=== PATIENT | male | born 1940 | race Caucasian/White ===

== ENCOUNTER → 2022-09-21 | Outpatient (CLI) | payer MEDICARE, OTHER ==
[2022-09-21 14:08] LABS: INR 0.9 (<1.2); Partial Thromboplastin Time 23.7 sec (22.0-30.0)
== END | disposition home or self-care (01) ==
LOC: LABPAT 13:10
PROVIDERS: ATTEND Orthopaedic Surgery Orthopaedic Surgery of the Spine
DX: Z01.812 Encounter for preprocedural laboratory examination (principal); M48.00 Spinal stenosis, site unspecified
CPT/HCPCS: 85610; 85730

== ENCOUNTER 2022-09-26 06:13 | Day surgery (SDC) | payer MEDICARE, OTHER ==
[2022-09-22 10:05] VITALS: BMI 29.7
[~2022-09-26 06:13] MED LIST: ceFAZolin 1,000 MG in SODIUM CHLORIDE 0.9% IRRIGATIO 1,000 ML IRRIGATION PRN
[2022-09-26] MEDS ORDERED: ONDANSETRON 4 MG/2 ML VIAL IVP ONE (06:43)
[2022-09-26] MEDS ORDERED: DEXAMETHASONE SOD PHOSPHATE 4 MG/ML 1 ML VIAL IV ONE (06:43)
[2022-09-26] MEDS ORDERED: LIDOCAINE 1% (10MG/ML) FOR IV START INTRADERMA PRN (06:43)
[2022-09-26] MEDS ORDERED: HYDROmorphone 0.5 MG/0.5 ML SYRINGE IVP PRN ×2 (07:00→09:39)
[2022-09-26] MEDS ORDERED: METOCLOPRAMIDE 5 MG/ML 2 ML VIAL IVP PRN (07:00)
[2022-09-26] MEDS ORDERED: FAMOTIDINE 20 MG/2 ML VIAL IV PRN (07:00)
[2022-09-26] MEDS: LACTATED RINGERS 1,000 ML IV SCH (07:15)
[2022-09-26] MEDS ORDERED: SUCCINYLCHOLINE CHLORIDE 200 MG/10 ML VIAL IV ONE (07:36)
[2022-09-26] MEDS ORDERED: DEXAMETHASONE SOD PHOS (MDV) 100 MG/10 ML VIAL ONE (07:36)
[2022-09-26] MEDS ORDERED: MIDAZOLAM 2 MG/2 ML VIAL ONE (07:36)
[2022-09-26] MEDS ORDERED: NEOSTIGMINE 1 MG/ML 10 ML VIAL ONE (07:36)
[2022-09-26] MEDS ORDERED: GLYCOPYRROLATE 0.2 MG/ML 2 ML VIAL ONE (07:36)
[2022-09-26] MEDS ORDERED: ePHEDrine 50 MG/ML 1 ML VIAL ONE (07:36)
[2022-09-26] MEDS ORDERED: ROCURONIUM 10 MG/ML (5 ML VIAL) IV ONE (07:36)
[2022-09-26] MEDS ORDERED: LIDOCAINE 2% INJ 20 MG/ML (2 ML VIAL) ONE (07:36)
[2022-09-26] MEDS ORDERED: PROPOFOL 10 MG/ML 20 ML VIAL IV ONE (07:36)
[2022-09-26] MEDS ORDERED: fentaNYL (PF) 50 MCG/ML 2 ML AMP ONE (07:36)
[2022-09-26] MEDS ORDERED: THROMBIN (BOVINE) 5,000 UNIT VIAL TOPICAL ONE (08:10)
[2022-09-26] MEDS ORDERED: GELATIN SPONGE,ABSORB (LARGE) 1 EACH SPONGE TOPICAL ONE (08:10)
[2022-09-26] MEDS ORDERED: LIDOCAINE 2% (PF) 20 MG/ML 10 ML AMP SQ ONE (08:10)
--- NOTE | 2022-09-26 09:30 | XR ---
EXAMINATION TYPE: XR cervical spine 1V DATE OF EXAM: 09/26/2022 COMPARISON: NONE HISTORY: Neck pain. TECHNIQUE: There are 2 crosstable lateral view of cervical spine obtained intraoperatively. FINDINGS: Second image shows needle localization at the C3-C4 disc space level. Exam is for surgical planning and not for diagnostic purposes. IMPRESSION: As above.
[2022-09-26] MEDS ORDERED: ONDANSETRON 4 MG/2 ML VIAL IVP PRN (09:39)
[2022-09-26] MEDS ORDERED: HYDROcodone/APAP 5-325MG 1 EACH TAB PO PRN (09:39)
[2022-09-26] MEDS ORDERED: CYCLOBENZAPRINE 10 MG TAB PO PRN (09:39)
[2022-09-26] MEDS ORDERED: MAGNESIUM HYDROXIDE 2,400 MG/10 ML CUP PO PRN (09:39)
[2022-09-26] MEDS ORDERED: ACETAMINOPHEN TAB 500 MG TAB PO PRN (09:39)
[2022-09-26] MEDS ORDERED: BENZOCAINE/MENTHOL LOZENG 1 EACH LOZENGE MUCOUS MEM PRN (09:39)
--- NOTE | 2022-09-26 09:43 | XR ---
EXAMINATION TYPE: XR cervical spine 1V DATE OF EXAM: 09/26/2022 COMPARISON: NONE HISTORY: Neck pain. TECHNIQUE: Crosstable lateral view of cervical spine is obtained intraoperatively. FINDINGS: There is new anterior fusion plate with artificial disc material at C3-C5 levels. Visualize d portion of spine shows satisfactory alignment. Overlying endotracheal tube is partially imaged. IMPRESSION: As above.
--- NOTE | 2022-09-26 09:46 | P.OP ---
Date of Procedure: 09/26/22 Preoperative Diagnosis: Cervical myelopathy, cervical myelomalacia, severe cervical stenosis C3 4 C4 5, herniated nucleus pulposis C3 4 C4 5, upper extremity myeloradiculopathy, upper extremity weakness, neck pain, degenerative disc disease Postoperative Diagnosis: Same Anesthesia: GETA Pathology: none sent Condition: stable Disposition: PACU Description of Procedure: BRIEF OPERATIVE NOTE Preoperative Diagnosis:Cervical myelopathy, cervical myelomalacia, severe cervical stenosis C3 4 C4 5, herniated nucleus pulposis C3 4 C4 5, upper extremity myeloradiculopathy, upper extremity weakness, neck pain, degenerative disc disease Postoperative Diagnosis:Cervical myelopathy, cervical myelomalacia, severe cervical stenosis C3 4 C4 5, herniated nucleus pulposis C3 4 C4 5, upper extremity myeloradiculopathy, upper extremity weakness, neck pain, degenerative disc disease Procedure: Anterior cervical decompression with discectomy and fusion C3 4 C4 5 Placement of interbody graft C3 4 C4 5 Application of anterior cervical plate C3 4 and 5 Surgeon: Dr. Remy Fourdrinier Tender: Eliu Donaldson is present throughout the entire the case persistence during positioning, dissection, exposure, visualization, and all crucial elements of the case as well as closure. Anesthesia: General anesthesia per Dr. Payan Estimated blood loss: Approximately 50 mL Complications: None apparent Components implanted: K2M [place] into cervical plate system with Vikos interbody allograft bone graft and 1 mL of DBX bone putty Disposition: To recovery room in good stable condition. OPERATIVE INDICATIONS The patient has had long-standing issues in their neck and upper extremities. He is having worsening pain in his neck and his upper extremities and was developing weakness at his upper extremity as well particular the right. He was no significant differences and changes in his dexterity strength and his balance. He was found have severe stenosis C3 4 C4 5 with evidence of cervical myelopathy and myelomalacia correlated with his neck and upper extremity symptoms. The patient has been through conservative treatment. We discussed various treatment options including surgery, and the patient wishes to proceed with surgery We discussed the risk, patient's alternatives and benefits of surgery including but not limited to, risk of bleeding risk of infection, risk of need for further surgery, risk of decreased, loss of motion, muscle function, malunion nonunion, hardware failure, nerve damage, paralysis, heart attack, and . OPERATIVE SUMMARY After discussing all the risks, patient alternatives and benefits at length, the patient elected to proceed with surgical intervention, signed informed consent, and presented for their procedure. The patient was seen and examined in the preoperative holding area and the surgical site was marked. The patient was given antibiotics and brought to the operating room. The patient was positioned on the operating room table in a supine position being careful to pad any bony prominences and pressure points. The patient was sedated and intubated by anesthesia in standard fashion. Once the airway and C- spine were stabilized the patient's arms were padded and tucked at her side, with her shoulders gently taped. The head was placed in a donut pad with the neck in good neutral alignment and position. We were careful to maintain the patient's cervical spine and good neutral alignment and position throughout. The patient was prepped and draped in a normal standard fashion. An appropriate timeout and keystone protocol performed. We were able to proceed with the surgery. The local wound area was infiltrated with local anesthetic. An incision was made transversely approximately 2-1/2 cm over the appropriate levels over C4 on the right. Dissection was taken down subcutaneously to the level of the platysma which was split in line with its fibers. Dissection was taken with a carotid approach, with the trachea and esophagus medial and the carotid sheath laterally. We dissected down to the anterior surface of the vertebral bodies at C3 4 and 5. Intraoperative x-ray was taken which showed a marker at the appropriate level at C3 4. With the appropriate level positively confirmed, we were able to proceed with discectomy at the appropriate levels. All of the operative levels were exposed appropriately. The patient had all their twitches back, and there was no evidence of recurrent laryngeal issue. The wound was copiously irrigated and suctioned dry as had been done periodically throughout the case. At the appropriate level/levels, starting at C3 4 and then moving to C4 5 I established an annulotomy with an 11 blade scalpel. A discectomy was performed with a combination of pituitary rongeurs, curettes, a high-speed bur, and Kerrison rongeurs. The posterior longitudinal ligament was taken down as were any posterior osteophytes. There was obvious evidence of significant herniation with stenosis at each of the levels which was remedied with the decompression and discectomy. This gave good central and bilateral foraminal decompression. There is no evidence of any dural tear or leak. The endplates were prepared with a high-speed bur. With the endplates in good parallel position, I was able to size for the appropriate size interbody graft. The wound was irrigated and suctioned dry the graft was prepared and malleted into position. It had good alignment and position with the anterior surface flush with the anterior surface of the vertebral bodies. This was done similarly the appropriate levels first at C3 4 and then at C4 5. With the grafts intact, I was able to measure and contour and appropriate sized plate. The plate was positioned at the midline over the appropriate levels at C3 4 and 5. Screw holes were established with a hand drill and drill guide. Screws were placed in good alignment and position with excellent bony purchase. They were seated under the locking device. The construct was checked and found to be stable. Intraoperative x-ray was taken which showed good alignment and position of the implants at the appropriate levels. There was no evidence of any dural tear or leak. Good hemostasis was maintained. The wound was copiously irrigated and suctioned dry as had been done periodically throughout the case. The platysma was closed with absorbable suture. The subcutaneous tissue was closed. The subcuticular tissue was closed with absorbable suture. The wound was cleaned and dried and dressed appropriately. A soft cervical collar was placed appropriately. The patient was woken up by anesthesia, extubated, transferred back gently to their hospital bed and brought to the recovery room in good stable condition. The patient will be admitted to the hospital for appropriate postoperative care, medical management and monitoring. We will continue to follow them closely about the postoperative course.
[2022-09-26] MEDS: hydrALAZINE HCL 20 MG/ML 1 ML VIAL IVP ONE ×2 (09:54→10:19)
[2022-09-26] MEDS: SODIUM CHLORIDE 0.9% 1,000 ML IV SCH ×2 (11:26→21:58)
[2022-09-26] MEDS: HYDROmorphone 1 MG/ML 1 ML SYRINGE IVP PRN (11:46)
[2022-09-26] MEDS ORDERED: LOSARTAN 50 MG TAB PO SCH (21:00)
[2022-09-26 23:08] VITALS: RESP 16
[2022-09-27] MEDS: HYDROmorphone 1 MG/ML 1 ML SYRINGE IVP PRN (02:17)
[2022-09-27 07:51] VITALS: BP 139/74; PULSE 62; TEMP 98.1
--- NOTE | 2022-09-27 08:39 | P.DS ---
Providers Date of admission: 09/26/2022 Expected date of discharge: 09/27/22 Attending physician: Fletcher Remy Primary care physician: Eddi Gil - Discharge Diagnosis(es) (1) S/P cervical spinal fusion Current Visit: Yes Status: Acute (2) Cervicalgia Current Visit: Yes Status: Acute (3) Cervical herniated disc Current Visit: Yes Status: Acute (4) Degenerative cervical disc Current Visit: Yes Status: Acute (5) Cervical stenosis of spinal canal Current Visit: Yes Status: Acute (6) Cervical myelopathy Current Visit: Yes Status: Acute (7) Cervical cord myelomalacia Current Visit: Yes Status: Acute (8) Radiculopathy affecting upper extremity Current Visit: Yes Status: Acute (9) Hypertension Current Visit: Yes Status: Acute (10) Hyperlipidemia Current Visit: Yes Status: Acute (11) Myeloradiculopathy Current Visit: Yes Status: Acute Hospital Course: This is a pleasant 82-year-old male who presented with cervical myelopathy, cervical malacia, C3-4 and C4-5 herniated nucleus pulposus with severe cervical stenosis, upper extremity myeloradiculopathy, upper extremity weakness, cervicalgia, and cervical degenerative disc disease who failed outpatient conservative therapy. He was admitted for a C3-4 and C4-5 anterior cervical decompression and fusion. The patient tolerated the procedure well and did well postoperatively. Pain has been adequately controlled. He is eating and voiding without difficulty. He has not worked on his mobility postoperatively but is working with nursing this morning. He has not had any significant change in his symptoms yet postoperatively. He does not feel his condition worsen. He does feel he is ready for discharge home today. Condition on day of discharge stable. Patient will be discharged home. Patient was cleared preoperatively for surgery by Dr. Perez. Patient currently denies any nausea, vomiting, fever, or chills. Patient is eating and voiding freely without difficulty. Patient may shower Optifoam dressing intact. Patient may remove Optifoam dressing in 3 days and shower without a dressing at that time. Patient should refrain from driving until at least after their first follow-up appointment in the office. Patient should avoid excessive neck flexion, extension, rotation, and lateral sidebending; no overhead lifting; no lifting greater than 10 pounds. MAPS has been reviewed today, 09/27/2022, with an Overall Overdose Risk Score of . An "Opiod Start Talking" Form has been signed and placed in the patient's chart. A prescription has been written for the code on 5 mg/325 mg, take 1 tab every 6 hours as needed for acute pain, dispensed #28. Patient is also given a prescription for baclofen 10 mg, take one tab 3 times a day as needed for muscle spasm, dispensed #60. Patient's other medical diagnoses include retention and hyperlipidemia. He has not had a bowel movement since his admission to the hospital yesterday. He does have some bloating and his abdomen but is passing gas without significant difficulty. He denies abdominal pain. He does have Senokot at home . We discussed he should take his medication as prescribed as needed to help facilitate a bowel movement. She should avoid anti-inflammatory medications over the next 6 weeks postoperatively. Physical Exam on day of discharge: Patient is awake, alert, and oriented 3 Vital signs stable Good chest excursion with deep inspiration and expiration Abdomen soft nontender No signs or symptoms of DVT; no calf pain Adequate range of motion of the cervical spine with adequate flexion, extension, and bilateral rotation It Security Engineer strength, thumb strength, interosseous strength, biceps strength, triceps strength, and shoulder strength positive sustained bilaterally Soft cervical collar intact No significant pain with palpation around the surgical site Generalized swelling around the anterior cervical surgical site Mild bruising at the chest just inferior to the anterior cervical surgical site Incision is clean, dry, and intact; no erythema, purulence, or signs of infection Optifoam dressing intact Procedures: C3-4 and C4-5 anterior cervical decompression and fusion Patient Condition at Discharge: Stable Plan - Discharge Summary Discharge Rx Participant: No New Discharge Prescriptions: New Baclofen 10 mg PO TID PRN #60 tab PRN Reason: Spasms HYDROcodone/APAP 5-325MG [[place] 5] 1 each PO Q6HR PRN #28 tab PRN Reason: Pain No Action Metoprolol Tartrate 75 mg PO QAM [place]-3/Dha/Epa/Fish Oil [Fish Oil 1,000 mg Softgel] 1 each PO DAILY Multivit-Min/FA/Lycopen/Lutein [Centrum Silver Men Tablet] 1 each PO DAILY Irbesartan [Avapro] 150 mg PO HS Cholecalciferol [Vitamin D3 (25 Mcg = 1000 Iu)] 50 mcg PO DAILY Discharge Medication List Cholecalciferol [Vitamin D3 (25 Mcg = 1000 Iu)] 50 mcg PO DAILY 09/22/22 [History] Irbesartan [Avapro] 150 mg PO HS 09/22/22 [History] Metoprolol Tartrate 75 mg PO QAM 09/22/22 [History] Multivit-Min/FA/Lycopen/Lutein [Centrum Silver Men Tablet] 1 each PO DAILY 09/22/22 [History] [place]-3/Dha/Epa/Fish Oil [Fish Oil 1,000 mg Softgel] 1 each PO DAILY 09/22/22 [History] Baclofen 10 mg PO TID PRN #60 tab 09/27/22 [Rx] HYDROcodone/APAP 5-325MG [[place]dem[place] 5] 1 each PO Q6HR PRN #28 tab 09/27/22 [Rx] Follow up Appointment(s)/Referral(s): Eliu Klein, [facility] [[facility]] - 2 Weeks (Patient may follow-up with Eliu Klein PA-C or Dr. Ceferino Remy at [facility] in 2-3 weeks following discharge; he states he may be scheduled for follow-up on 10/10/2022) Activity/Diet/Wound Care/Special Instructions: 1. Patient may shower with Optifoam dressing intact. 2. Patient may remove Optifoam dressing in 3 days and shower without a dressing at that time. 3. Patient may wear soft cervical collar for comfort support as needed. 4. Patient should refrain from driving until at least after their first follow- up appointment in the office. 5. Patient should avoid excessive cervical flexion, extension, and side bending; avoid overhead lifting; no lifting greater than 10 pounds 6. Take medications as prescribed 7. Patient should avoid anti-inflammatory medications over the next 6 weeks postoperatively 8. Do not soak in tub Discharge Disposition: HOME SELF-CARE
[2022-09-27] MEDS ORDERED: NON FORMULARY DRUG (Omega-3/Dha/Epa/Fish Oil [Fish Oil 1,000 Mg Softgel] 1 EACH Capsule) PO SCH (09:00)
[2022-09-27] MEDS ORDERED: SENNOSIDES-DOCUSATE SODIUM 1 EACH TAB PO SCH ×2 (09:00)
[2022-09-27] MEDS ORDERED: CHOLECALCIFEROL 25 MCG (1000 IU) TABLET PO SCH (09:00)
[2022-09-27] MEDS ORDERED: MULTIVITAMINS, THERA 1 EACH TAB PO SCH (09:00)
[2022-09-27] MEDS ORDERED: METOPROLOL TARTRATE 25 MG TAB PO SCH (09:00)
[2022-09-27] MEDS: LACTATED RINGERS 1,000 ML IV SCH (09:30)
== END 2022-09-27 11:06 | disposition home or self-care (01) ==
LOC: OR 06:13 → 4SSUR 09:37 → OR 09-27 11:06
PROVIDERS: ATTEND Orthopaedic Surgery Orthopaedic Surgery of the Spine
DX: M50.01 Cervical disc disorder with myelopathy, high cervical region (principal); M50.021 Cervical disc disorder at C4-C5 level with myelopathy; M50.11 Cervical disc disorder with radiculopathy, high cervical region; M50.121 Cervical disc disorder at C4-C5 level with radiculopathy; M48.02 Spinal stenosis, cervical region; G95.89 Other specified diseases of spinal cord; I10 Essential (primary) hypertension; E78.5 Hyperlipidemia, unspecified; Z87.891 Personal history of nicotine dependence; F10.20 Alcohol dependence, uncomplicated; Z82.49 Family history of ischemic heart disease and other diseases of the circulatory system; Z79.899 Other long term (current) drug therapy
CPT/HCPCS: 94760 ×2; 72020; 22551; 22552; 22854; 20930; C1713 ×2; C1762; J0360; J2001; J0690 ×2; J2405; J1170 ×2; 86850; 86900; 86901